=== PATIENT | male | born 1955 | race African-American/Black ===

== ENCOUNTER → 2017-10-12 | Day surgery (SDC) | payer MEDICAID ==
[~2017-10-12] MED LIST: LIDOCAINE 2% MDV (20MG/ML) 20ML VIAL IV ONE; PROPOFOL 10 MG/ML VIAL IV ONE
--- NOTE | 2017-10-12 12:50 | Operative Note ---
DATE OF SURGERY: 10/12/2017 Surgeon: Gabino Avila DO PREOPERATIVE DIAGNOSIS: Screening colonoscopy. POSTOPERATIVE DIAGNOSIS: Viera colonic diverticulosis and colon polyp x4. OPERATION: Colonoscopy with polypectomy. PROCEDURE: The patient is a 62-year-old male who was brought to the endoscopy suite and placed in a supine position. Appropriate monitoring was placed including nasal O2, pulse oximetry, and blood pressure cuff. The patient was rotated into the left lateral position. Propofol anesthesia was titrated to effect. At this time, a digital rectal exam was done showing no internal masses. A well-lubricated [id number] colonoscope was inserted into the patient's rectum and advanced to the sigmoid where 2 polypoid lesions were encountered. These were each removed with a cold snare. Complete hemostasis noted. The scope was advanced further up the descending colon. Additional polypoid lesion was encountered. This was removed with cold forceps. The scope was advanced through the transverse down the ascending colon to the cecum. Once the cecum was reached, it was identified by the appendiceal orifice and ileocecal valve. Of note, there was mild viera colonic diverticulosis noted. Once the scope was slowly withdrawn, there was an additional polypoid lesion noted in the proximal transverse colon. Again this was removed with cold snare. Complete hemostasis noted. The scope was then slowly withdrawn. There were normal folds and distensibility seen. Retroflexion maneuver was done in the rectum which revealed grade 1 hemorrhoids. At this time, scope was straightened, gas evacuated, scope was fully removed. FINDINGS AT THE TIME OF SURGERY: Colon polyp x4 and viera colonic diverticulosis, mild. Recommend repeating this in 3 years or sooner if any problems arise. Also high-fiber diet of over 30 grams a day. MTDD
== END | disposition home or self-care (01) ==
LOC: HOP 07:18
PROVIDERS: ATTEND Surgery
DX: Z12.11 Encounter for screening for malignant neoplasm of colon (principal); D12.5 Benign neoplasm of sigmoid colon; D12.4 Benign neoplasm of descending colon; D12.3 Benign neoplasm of transverse colon; K57.30 Diverticulosis of large intestine without perforation or abscess without bleeding; I10 Essential (primary) hypertension